=== PATIENT | female | born 1960 | race Asian ===

== ENCOUNTER 2019-05-23 19:15 | Outpatient (CLI) | payer BC | END 2019-05-23 19:16 | disposition critical access hospital (66) | LOC: EMS 19:15 | PROVIDERS: ATTEND Surgery | DX: S09.90XA Unspecified injury of head, initial encounter (principal); R41.82 Altered mental status, unspecified; V19.9XXA Pedal cyclist (driver) (passenger) injured in unspecified traffic accident, initial encounter; Y93.55 Activity, bike riding | CPT/HCPCS: A0425; A0429 ==

== ENCOUNTER 2019-05-23 19:26 | Emergency (ER) | payer BC ==
[2019-05-23 19:48] LABS: BASOPHILS % (AUTO) 0.6 %; EOSINOPHILS # (AUTO) 0.1 10^3/uL (0.0-0.7); EOSINOPHILS % (AUTO) 2.9 %; HGB - HEMOGLOBIN 11.5 g/dL (12.0-16.0); LYMPHOCYTES # (AUTO) 2.2 10^3/uL (1.5-3.5); LYMPHOCYTES % (AUTO) 45.5 %; MEAN CORPUSCULAR HEMOGLOBIN 22.4 pg (27.0-31.0); MEAN CORPUSCULAR HGB CONC 31.3 g/dL (32.0-36.0); MEAN CORPUSCULAR VOLUME 71.7 fL (81.0-99.0); MEAN PLATELET VOLUME 11.9 fL (7.9-10.8); MONOCYTES # (AUTO) 0.4 10^3/uL (0.0-1.0); NEUTROPHILS # (AUTO) 2.1 10^3/uL (1.5-6.6); NEUTROPHILS % (AUTO) 42.8 %; PLT - PLATELET COUNT 225 10^3/uL (130-450); RED BLOOD COUNT 5.13 10^6/uL (4.20-5.40); RED CELL DISTRIBUTION WIDTH 13.9 % (12.0-15.0); WHITE BLOOD COUNT 4.9 x10^3/uL (4.8-10.8)
[2019-05-23 20:01] LABS: ALBUMIN 4.1 g/dL (3.2-5.5); ALBUMIN/GLOBULIN RATIO 1.3 (1.0-2.2); BILIRUBIN,TOTAL 0.9 mg/dL (0.2-1.0); CALCIUM 9.3 mg/dL (8.5-10.3); TOTAL PROTEIN 7.2 g/dL (6.7-8.2)
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
[2019-05-23] MEDS ORDERED: TETANUS/DIPHTHERIA/PERTUSSIS 0.5 ML SYRINGE IM ONE (20:36)
--- NOTE | 2019-05-23 21:48 | CT Report ---
Reason: head injury with amnesia Procedure Date: 05/23/2019 Accession Number: [id number] / [id number] Procedure: CT - CERVICAL SPINE WO CPT Code: FULL RESULT: EXAM: CT HEAD. CT SCAN OF THE CERVICAL SPINE. EXAM DATE: 05/23/2019 09:29 PM. CLINICAL HISTORY: Head injury with amnesia of event. COMPARISON: MRI BRAIN W CERVICAL SPINE W/O 05/23/2019 9:22 PM. TECHNIQUE: Noncontrast axial sections through the head and cervical spine. Reformats: Sagittal and coronal of the head, coronal and sagittal of the cervical spine. In accordance with CT protocol optimization, one or more of the following dose reduction techniques were utilized for this exam: automated exposure control, adjustment of mA and/or KV based on patient size, or use of iterative reconstructive technique. FINDINGS CT HEAD: Parenchyma: No intraparenchymal hemorrhage. No evidence of mass, midline shift, or CT findings of infarction. Frances-white differentiation is distinct. Extraaxial Spaces: Normal for age. No subdural or epidural collections identified. Ventricles: Normal in size and position. Sinuses and orbits: There is a moderate to large amount of blood within the right maxillary sinus. There is a fracture deformity with mild comminution involving the posterior wall of the right maxillary sinus. Nondisplaced anterior wall fracture of the right maxillary sinus is also seen. The maxillary sinus is partially imaged on this examination. There is a comminuted mildly displaced fracture of the superolateral wall of the right orbit. Mild comminuted fracture of the right inferior orbital wall is also noted. There is associated moderate right periorbital soft tissue swelling as a result. Bones: Fracture of the base of the right zygoma is noted (image 7 series 4), with possible extension into the right temporomandibular joint anteriorly. No TMJ dislocation evident in the visualized portions. There is also mild angulation comminuted fracture of the midportion of the right zygomatic arch (image 5 series 4). Nondisplaced fracture of the left anterior zygomaticomaxillary region suspected (image 6 series 4). Difficult to be certain on this exam. Other: Skin laceration about the right frontal region is suspected. FINDINGS CT CERVICAL SPINE: Alignment: No pathologic subluxation evident on this exam. Straightening of the spine, probably positional. Bones: No fracture or bone lesion. Interspace Levels/Facets: Multilevel mid and lower cervical spondylitic changes noted. Other: The paravertebral and prevertebral soft tissues are unremarkable. The lung apices are clear. IMPRESSION: Head CT: 1. No CT evidence of an acute intracranial abnormality. 2. Extensive right-sided maxillofacial and right orbital fractures cataloged above. 3. Also suspect nondisplaced left zygomaticomaxillary attachment fracture. 4. Moderate to large amount of blood within the right maxillary sinus as a result of the fractures. Cervical Spine CT: 1. No definite acute bone abnormality. 2. Moderate mid and lower cervical multilevel spondylitic change. RADIA
[2019-05-23] MEDS ORDERED: LIDOCAINE 2%-EPI 1:100000 20 ML MDV SUBQ STA (22:06)
--- NOTE | 2019-05-23 22:21 | XRAY Report ---
Reason: modified. 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 CLINICAL HISTORY: Trauma COMPARISON: CHEST 2 VIEW PA/LAT 09/17/2014 2:53 AM. TECHNIQUE: 1 view. FINDINGS: Lungs/Pleura: No dense consolidation. No large effusion or pneumothorax. No pulmonary edema. Mediastinum: Borderline enlarged cardiac silhouette, likely secondary to low lung volumes. Other: None. IMPRESSION: No acute radiographic pulmonary abnormalities. RADIA
[2019-05-23] MEDS ORDERED: KETOROLAC 30 MG/ML VIAL IVP STA (22:31)
[2019-05-23] MEDS ORDERED: BACITRACIN OINT TOP ONE ×2 (22:43→22:54)
[2019-05-24 00:33] VITALS: BP 135/68
[2019-05-24] MEDS ORDERED: HYDROcod/ACET 5/325 Prepack 4 PO STA (00:34)
== END 2019-05-24 01:13 | disposition home or self-care (01) ==
LOC: ED 19:26
DX: S06.0X0A Concussion without loss of consciousness, initial encounter (principal); S02.40CA Maxillary fracture, right side, initial encounter for closed fracture; S02.40FA Zygomatic fracture, left side, initial encounter for closed fracture; S02.40EA Zygomatic fracture, right side, initial encounter for closed fracture; S02.81XA Fracture of other specified skull and facial bones, right side, initial encounter for closed fracture; S01.111A Laceration without foreign body of right eyelid and periocular area, initial encounter; S60.512A Abrasion of left hand, initial encounter; S60.511A Abrasion of right hand, initial encounter; S50.811A Abrasion of right forearm, initial encounter; S40.811A Abrasion of right upper arm, initial encounter; S80.212A Abrasion, left knee, initial encounter; S80.211A Abrasion, right knee, initial encounter; V18.2XXA Unspecified pedal cyclist injured in noncollision transport accident in nontraffic accident, initial encounter; Y93.55 Activity, bike riding; Y92.410 Unspecified street and highway as the place of occurrence of the external cause; M47.812 Spondylosis without myelopathy or radiculopathy, cervical region; Z23 Encounter for immunization
CPT/HCPCS: 12052; 36415; 70450; 71045; 72125; 80053; 83690; 85025; 90471; 90715; 96374; 99284; A9270

== ENCOUNTER 2021-01-23 08:00 | Day surgery (SDC) | payer BC ==
--- OUTSIDE RECORDS SUMMARY | 2021-01-23 08:03 | EXTERNAL MEDICAL SUMMARY RPT | Continuity of Care Document ---
:1960 Demographics Phone Unavailable Preferred Language Sinhala Marital Status Unknown Tenriism Affiliation Unknown Race Unknown Ethnic Group Unknown Author Organization [facility] Address [address] [phone] Phone Social History date description facility [id number]
[2021-01-23] MEDS ORDERED: LACTATED RINGERS 1,000 ML IV ONE ×2 (08:06→09:25)
[2021-01-23] MEDS ORDERED: fentaNYL 100 MCG/2 ML VIAL ONE (08:50)
[2021-01-23] MEDS ORDERED: MIDAZOLAM 2 MG/2 ML VIAL ONE (08:50)
[2021-01-23 09:56] VITALS: BP 127/72
== END 2021-01-23 08:01 | disposition home or self-care (01) ==
LOC: SDS 08:00
PROVIDERS: ATTEND Surgery
DX: Z12.11 Encounter for screening for malignant neoplasm of colon (principal); Z86.010 Personal history of colon polyps; K57.30 Diverticulosis of large intestine without perforation or abscess without bleeding; K64.4 Residual hemorrhoidal skin tags; K64.8 Other hemorrhoids; E78.5 Hyperlipidemia, unspecified; K21.9 Gastro-esophageal reflux disease without esophagitis
CPT/HCPCS: 45378; J7120

== ENCOUNTER 2021-12-05 11:19 | Outpatient (CLI) | payer BC ==
--- NOTE | 2021-12-05 15:57 | XRAY Report ---
PROCEDURE: Finger(s) RT INDICATIONS: 3RD FINGER PAIN TECHNIQUE: AP hand, 2 views of the right third finger(s) acquired. COMPARISON: None FINDINGS: Bones: No fractures or dislocations. No suspicious bony lesions. Severe osteoarthritic degenerative changes noted in the right third DIP joint with large marginal osteophytes and joint space narrowing . Mild to moderate third PIP joint osteophytosis. Soft tissues: No suspicious soft tissue calcifications. IMPRESSION: Third finger osteoarthritis as described above. Reviewed by: Georgiana Stover MD, PhD on 12/05/2021 3:55 PM PST Approved by: Georgiana Stover MD, PhD on 12/05/2021 3:55 PM PST Station ID: [id number]
== END 2021-12-05 11:20 | disposition home or self-care (01) ==
LOC: DI.WOS 11:19
PROVIDERS: ATTEND Orthopaedic Surgery
DX: M19.041 Primary osteoarthritis, right hand (principal)

== ENCOUNTER 2022-09-12 08:00 | Outpatient (CLI) | payer BC ==
[2022-09-12 16:28] LABS: BASOPHILS % (AUTO) 0.9 %; EOSINOPHILS # (AUTO) 0.1 10^3/uL (0.0-0.7); EOSINOPHILS % (AUTO) 3.1 %; HCT - HEMATOCRIT 40.1 % (37.0-47.0); HGB - HEMOGLOBIN 12.3 g/dL (12.0-16.0); LYMPHOCYTES # (AUTO) 1.8 10^3/uL (1.5-3.5); LYMPHOCYTES % (AUTO) 40.6 %; MEAN CORPUSCULAR HEMOGLOBIN 21.4 pg (27.0-31.0); MEAN CORPUSCULAR HGB CONC 30.7 g/dL (32.0-36.0); MEAN CORPUSCULAR VOLUME 69.6 fL (81.0-99.0); MONOCYTES # (AUTO) 0.4 10^3/uL (0.0-1.0); MONOCYTES % (AUTO) 9.9 %; NEUTROPHILS % (AUTO) 45.1 %; RED BLOOD COUNT 5.76 10^6/uL (4.20-5.40); WHITE BLOOD COUNT 4.5 x10^3/uL (4.8-10.8)
[2022-09-12 16:33] LABS: ALBUMIN 4.1 g/dL (3.2-5.5); ALBUMIN/GLOBULIN RATIO 1.1 (1.0-2.2); ALKALINE PHOSPHATASE 70 IU/L (42-121); ALT ALANINE AMINOTRANSFERASE 30 IU/L (10-60); AST ASPARTATE AMINOTRANSFERASE 20 IU/L (10-42); BILIRUBIN,TOTAL 0.4 mg/dL (0.2-1.0); BUN - BLOOD UREA NITROGEN 17 mg/dL (6-20); CALCIUM 9.4 mg/dL (8.5-10.3); CARBON DIOXIDE - CO2 26 mmol/L (21-32); CHLORIDE 101 mmol/L (101-111); CHOL/HDL RATIO 5.2 (<4.4); CHOLESTEROL 309 mg/dL; GFR - MDRD 56 (>89); GLUCOSE 87 mg/dL (70-100); HDL CHOLESTEROL 59 mg/dL; LDL CHOLESTEROL,CALCULATED 208 mg/dL; LDL/HDL RATIO 3.5 (<4.4); POTASSIUM 4.7 mmol/L (3.5-5.0); SODIUM 138 mmol/L (135-145); TOTAL PROTEIN 7.9 g/dL (6.7-8.2); TRIGLYCERIDES 211 mg/dL; VLDL CHOLESTEROL 42 mg/dL
[2022-09-12 17:02] LABS: PLATELET ESTIMATE, MANUAL NORMAL (130-450,000) (NORMAL); PLATELET MORPHOLOGY PLATELET CLUMPING (NORMAL); SLIDE REVIEW? Indicated
== END 2022-09-12 23:59 | disposition home or self-care (01) ==
LOC: LAB.R 08:00
PROVIDERS: ATTEND Internal Medicine
DX: Z00.00 Encounter for general adult medical examination without abnormal findings (principal); H91.90 Unspecified hearing loss, unspecified ear; Z86.010 Personal history of colon polyps; E78.5 Hyperlipidemia, unspecified; R10.9 Unspecified abdominal pain; R31.29 Other microscopic hematuria
CPT/HCPCS: 80053; 80061; 83721; 84443; 85025

== ENCOUNTER 2024-04-05 00:06 | Emergency (ER) | payer BC ==
[2024-04-05 00:27] LABS: RAPID STREP SCREEN Negative (Negative)
[2024-04-05 00:29] VITALS: BP 160/80
[2024-04-05 01:34] VITALS: O2SAT 98
--- NOTE | 2024-04-05 01:46 | XRAY Report ---
PROCEDURE: Chest 1V INDICATIONS: cough x 1 week TECHNIQUE: One view of the chest was acquired. COMPARISON: 05/23/2019. FINDINGS: Surgical changes and devices: None. Lungs and pleura: No pleural effusions or pneumothorax. Lungs are clear. Mediastinum: Mediastinal contours appear normal. Heart size is normal. Bones and chest wall: No suspicious bony lesions. Overlying soft tissues appear unremarkable. IMPRESSION: No acute cardiopulmonary process. Reviewed by: Homer Agudelo MD on 04/05/2024 1:45 AM PDT Approved by: Homer Agudelo MD on 04/05/2024 1:45 AM PDT Station ID: [id number]
--- NOTE | 2024-04-05 01:56 | ED Physician Documentation ---
PD HPI URI - Stated complaint Stated Complaint: THROAT PAIN - Chief complaint Chief Complaint: Heent - History obtained from History obtained from: Patient - Additional information Additional information: Patient is a 63-year-old female with no significant past medical history presenting for evaluation of 1 week of sore throat and nonproductive cough. She reports trying home remedies without any improvement. She is having difficulty sleeping due to the cough. No reported fevers. No chest pain or shortness of air. No abdominal symptoms or leg swelling. Review of Systems Throat: reports: Sore throat Respiratory: reports: Cough GI: denies: Vomiting PD PAST MEDICAL HISTORY - Past Medical History Past Medical History: No - Past Surgical History Past Surgical History: No - Present Medications Home Medications: Ambulatory Orders Medication Instructions Recorded Confirmed Benzonatate [Tessalon] 100 mg PO TID PRN #21 cap 04/05/24 - Allergies Allergies/Adverse Reactions: Allergies Allergy/AdvReac Type Severity Reaction Status Date / Time No Known Drug Allergies Allergy Verified 04/05/24 00:11 - Social History Does the pt smoke?: No Smoking Status: Never smoker Does the pt drink ETOH?: Yes Does the pt have substance abuse?: No - Immunizations Immunizations are current?: Yes - POLST Patient has POLST: No PD ED PE NORMAL - General General: Alert and oriented X 3, No acute distress, Well developed/nourished - HEENT HEENT: Atraumatic, Moist mucous membranes, Pharynx benign, Other (No oral swelling) - Neck Neck: Supple, no meningeal sign - Cardiac Cardiac: RRR, Strong equal pulses - Respiratory Respiratory: No respiratory distress, Clear bilaterally - Derm Derm: Warm and dry - Neuro Neuro: Normal speech Results - Vitals Vitals: Vital Signs - 24 hr 04/05/24 04/05/24 00:11 01:31 Temperature 36.5 C Heart Rate 79 64 Respiratory 16 18 Rate Blood Pressure 160/80 H O2 Saturation 10 L 98 Oxygen O2 Source Room air - Labs Labs: Laboratory Tests 04/05/24 04/05/24 00:15 00:15 Nasal Adenovirus (PCR) NOT DETECTED Nasal B. parapertussis DNA (PCR) NOT DETECTED Nasal Coronavir 229E PCR NOT DETECTED Nasal Coronavir HKU1 PCR NOT DETECTED Nasal Coronavir NL63 PCR NOT DETECTED Nasal Coronavir OC43 PCR NOT DETECTED Nasal Enterovir/Rhinovir PCR NOT DETECTED Nasal Influenza B PCR NOT DETECTED Nasal Influenza A PCR NOT DETECTED Nasal Parainfluen 1 PCR NOT DETECTED Nasal Parainfluen 2 PCR NOT DETECTED Nasal Parainfluen 3 PCR NOT DETECTED Nasal Parainfluen 4 PCR NOT DETECTED Nasal RSV (PCR) NOT DETECTED Nasal B.pertussis DNA PCR NOT DETECTED Nasal C.pneumoniae (PCR) NOT DETECTED Hipolito Human Metapneumo PCR NOT DETECTED Nasal M.pneumoniae (PCR) NOT DETECTED Nasal SARS-CoV-2 (PCR) NOT DETECTED Group A Strep Rapid Negative PD Medical Decision Making - ED course Complexity details: reviewed results, d/w patient ED course: Patient with URI symptoms for 1 week of cough and sore throat. Has not taken a COVID test yet. Vital signs are stable. Lung sounds are clear but she does have frequent coughing. Rapid strep is negative. Chest x-ray which I reviewed is negative for pneumonia. Patient given a dose of Decadron as she reports the pain in the throat was making it hard for her to sleep. No signs of deep space infection or abscess. Patient also given cough medication and advised on continued supportive care. Departure - Departure Disposition: 01 Home, Self Care Clinical Impression: Upper respiratory infection, Pharyngitis Condition: Stable Instructions: ED Pharyngitis Viral, ED URI Viral Prescriptions: Benzonatate [Tessalon] 100 mg PO TID PRN #21 cap PRN Reason: Cough Comments: Your chest x-ray does not show signs of pneumonia. Your strep test is negative. I have sent a prescription for cough medication to [facility] in [place]. Your respiratory panel is pending. This will check for COVID, influenza, RSV and a number of other common cold viruses. We will notify you if it is positive for COVID. Otherwise you can check the patient portal for your results. You should quarantine from others until you know your COVID result. Please continue with acetaminophen or ibuprofen as needed for fevers and body aches, plenty of fluids/hydration and rest. Return to the ER with any worsening symptoms such as difficulty breathing or vomiting. Forms: PCP List Discharge Date/Time: 04/05/24 02:10
[2024-04-05 02:04] LABS: B. PARAPERTUSSIS- RESP PCR PAN NOT DETECTED; B. PERTUSSIS- RESP PCR PANEL NOT DETECTED; C. PNEUMONIAE- RESP PCR PANEL NOT DETECTED; CORONAVIRUS 229E-RESP PCR NOT DETECTED; CORONAVIRUS HKU1-RESP PCR NOT DETECTED; CORONAVIRUS NL63-RESP PCR NOT DETECTED; CORONAVIRUS OC43-RESP PCR NOT DETECTED; HUMAN METAPNEUMOVIRUS NOT DETECTED; INFLUENZA A- RESP PCR PANEL NOT DETECTED; INFLUENZA B - RESP PCR PANEL NOT DETECTED; M. PNEUMONIAE- RESP PCR PANEL NOT DETECTED; PARAINFLUENZA VIRUS 1 NOT DETECTED; PARAINFLUENZA VIRUS 2 NOT DETECTED; PARAINFLUENZA VIRUS 3 NOT DETECTED; PARAINFLUENZA VIRUS 4 NOT DETECTED; RHINOVIRUS/ENTEROVIRUS NOT DETECTED; RSV- RESP PCR PANEL NOT DETECTED; SARS-CoV-2 -RESP PCR PANEL NOT DETECTED
[2024-04-05] MEDS: guaiFENesin/DEXTROMETHORPHAN 10 ML UDC PO STA (02:06)
[2024-04-05] MEDS: CHERRY SYRUP 10 ML UDC PO ONE (02:06)
[2024-04-05] MEDS: DEXAMETHASONE 10 MG/ML VIAL PO STA (02:06)
== END 2024-04-05 02:10 | disposition home or self-care (01) ==
LOC: ED 00:06
DX: J02.9 Acute pharyngitis, unspecified (principal); J06.9 Acute upper respiratory infection, unspecified; Z20.818 Contact with and (suspected) exposure to other bacterial communicable diseases; Z20.822 Contact with and (suspected) exposure to COVID-19; Z20.828 Contact with and (suspected) exposure to other viral communicable diseases
CPT/HCPCS: 71045; 87070; 87430; 87633; 99283; 99284; A9270